=== PATIENT | male | born 1995 | race Caucasian/White ===

== ENCOUNTER 2018-05-20 18:50 | Emergency (ER) | payer OTHER ==
[~2018-05-20] VITALS: Ht 177.8 cm; Wt 104.8 kg
[2018-05-20 18:58] VITALS: Ht 177.8 cm; Wt 104.8 kg
[2018-05-20 20:22] LABS: UA SPECIFIC GRAVITY >=1.030 (1.005-1.035); microscopic required? YES; urine erythrocyte 2+ (NEGATIVE)
[2018-05-20 22:03] VITALS: BP 139/110
== END 2018-05-20 22:04 | disposition home or self-care (01) ==
LOC: ED 18:50
PROVIDERS: Emergency Medicine
DX: N43.3 Hydrocele, unspecified (principal); R82.71 Bacteriuria; I10 Essential (primary) hypertension; E78.00 Pure hypercholesterolemia, unspecified
CPT/HCPCS: 87491; 87591; J1885; Q0092